=== PATIENT | male | born 2005 | race Two or more races ===

== ENCOUNTER 2025-05-22 13:19 | Outpatient (REF) | payer BC, SELFPAY ==
[2025-05-22 17:40] LABS: MANUAL DIFF FLAG NO
[2025-05-22 17:51] LABS: Hematocrit 42.5 % (42.0-52.0); Hemoglobin 14.0 g/dl (14.0-18.0); Imm Gran Abs Auto 0.02 X10*3/uL (0.00-0.03); Imm Gran Pct Auto 0.3 % (0.0-0.4); Lymphocytes Absolute Auto 1.8 X10*3/uL (1.2-4.9); Mean Corpuscular HGB Conc 32.9 g/dl (31.0-36.0); Mean Corpuscular Hemoglobin 26.6 pg (27.0-33.0); Mean Corpuscular Volume 80.8 fL (80.0-98.0); NRBC Abs Auto 0.000 X10*3/uL (0.0-0.012); NRBC Pct Auto 0.0 /100WBC (0.0-0.2); Platelet Count 186 X10*3/uL (160-400); Red Blood Count 5.26 X10*6/uL (4.60-5.80); White Blood Count 6.6 X10*3/uL (4.8-10.8)
[2025-05-22 17:52] LABS: Appearance Urine Cloudy; Glucose Urine UA Negative (Negative); PH 8.5 (5.0-9.0); Specific Gravity - Urine 1.020 (1.005-1.025)
[2025-05-22 18:25] LABS: Alanine Aminotransferase 130 U/L (0-40); Albumin Level 5.0 g/dL (3.5-5.0); Alkaline Phosphatase 78 U/L (39-117); Anion Gap 12 (12-20); Aspartate Amino Transferase 203 U/L (5-37); Blood Urea Nitrogen 10 mg/dL (9-16); Calcium 9.7 mg/dL (8.4-10.2); Carbon Dioxide 29 mmol/L (22-29); Chloride 105 mmol/L (96-108); Cholesterol 231 mg/dL (<200); Estimated Glomerular Filt Rate > 60; HDL Cholesterol 37 mg/dL (>40); Magnesium 1.8 mg/dL (1.6-2.6); Potassium 3.9 mmol/L (3.3-5.1); Sodium 142 mmol/L (135-145); Total Protein 7.8 g/dL (6.5-8.0); Triglycerides 237 mg/dL (<150)
[2025-05-23 08:44] LABS: HBS Num1 1.33 mIU/mL (0-7.99); HBsAGNum1 0.40 S/CO (0.00-0.99); HIV Num 1 0.06 S/CO (0.00-0.99); Hepatitis B Surface Antigen Negative (Negative); ~HepC Num1 0.08 S/CO (0.00-0.79); ~Hepatitis B Surface Antibody NONREACTIVE (Nonreactive); ~Hepatitis C Antibody Nonreactive (Nonreactive)
[2025-05-23 09:05] LABS: Syphilis Screen Nonreactive (Nonreactive)
[2025-05-23 10:48] LABS: CT PCR Urine NOT DETECTED (Not Detect.); NG PCR Urine NOT DETECTED (Not Detect.)
[2025-05-29 15:43] LABS: VITAMIN D (1,25 OH) D3 31 pg/mL; Vit D (1,25-Dihydroxy) Total 31 pg/mL (18-72); Vitamin D (1,25 OH) D2 <8 pg/mL
[2025-05-30 13:24] LABS: Chlamydia Pneumoniae Interp. Past Infection; Chlamydia Trachomatis IgA <1:16 titer (<1:16)
== END 2025-05-22 13:20 | disposition home or self-care (01) ==
LOC: HO.HKASLDS 13:19
PROVIDERS: PCP Student in an Organized Health Care Education/Training Program; Visit Provider Student in an Organized Health Care Education/Training Program
DX: Z76.89 Persons encountering health services in other specified circumstances (principal); Z01.89 Encounter for other specified special examinations; Z13.9 Encounter for screening, unspecified; Z71.9 Counseling, unspecified; R03.0 Elevated blood-pressure reading, without diagnosis of hypertension; E66.3 Overweight; F43.23 Adjustment disorder with mixed anxiety and depressed mood; K59.00 Constipation, unspecified; K64.9 Unspecified hemorrhoids; Z20.2 Contact with and (suspected) exposure to infections with a predominantly sexual mode of transmission
CPT/HCPCS: 80053; 80061; 81003; 82652; 83036; 83735; 84443; 85025; 86631; 86632; 86706; 86780; 86803; 87340; 87389; 87491; 87591; 96127

== ENCOUNTER 2025-05-22 13:19 | Outpatient (AMB) | payer BC, SELFPAY ==
--- NOTE | 2025-05-22 13:26 | MHC.PC.OV ---
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 Constipation: - The patient reports experiencing constipation for approximately four years, with bowel movements occurring every three days. - Previous interventions included the use of laxatives and stool softeners, which provided temporary relief. - The patient has attempted dietary changes, but reports insufficient intake of fiber and vegetables. - The patient engages in physical activity, attending the gym three times a week. Hemorrhoids: - The patient suspects the presence of hemorrhoids, noting occasional blood on toilet paper and a palpable bump. - The patient has been trying to avoid prolonged sitting on the toilet to alleviate symptoms. Health Maintenance - Dietary advice: Increase fiber intake and consume more vegetables. - Exercise: Patient is encouraged to continue regular physical activity. Review of Systems - Gastrointestinal: Reports constipation for four years, occasional blood on toilet paper, and a palpable bump suggestive of hemorrhoids. - General: Denies any other significant symptoms or concerns. 10-point ROS reviewed and negative except as noted in HPI Medication History - Laxatives and stool softeners: Previously used for constipation with temporary relief. Current Substance Use - Alcohol: Consumes occasionally. Substance Use History - Alcohol: Occasional use reported. Family History - Mother: Reports similar digestive issues, but no specific diagnosis known. Social History - Diet: Irregular eating habits with insufficient fiber and vegetable intake. - Exercise: Attends gym three times a week. Physical Exam General: No apparent distress. Alert and oriented x 3. Head: Normocephalic, atraumatic Eyes: Pupils equal, round, and reactive to light. Extraocular movements intact Throat: Oropharynx clear. No lesions or exudate.oropharynx clear. Mucus membranes moist Neck: Supple. No lymphadenopathy.left anterior descending artery distention. No jugular vein distention. No bruit. Cardiovascular: Regular rate and rhythm. Normal S1 and S2. No murmurs, gallops, or rubs. murmurs, rubs, or gallops Lungs: Clear to auscultation bilaterally. Breath sounds equal bilaterally. No rales, rhonchi, or wheezes. Abdomen: Non-tender. Non-distended. Bowel sounds auscultated. Reports constipation with bowel movements every three days. Last bowel movement was four days ago, with a small movement yesterday.hepatosplenomegaly. No mass/rebound/guarding Extremities: No cyanosis, clubbing, or edema.clubbing, cyanosis, and edema. 2+ pulses Neuro: Cranial nerves II-XII grossly intact. Motor/sensory intact. Reflexes 2+. Gait normal. Skin: Warm, dry, and intact. No rash. No dry skin or cold intolerance noted. Discussion Notes I discussed with the patient the importance of increasing dietary fiber and maintaining adequate hydration to manage constipation. We also talked about the use of Metamucil and Bisacodyl to aid bowel movements. I recommended a comprehensive blood workup to rule out underlying conditions such as thyroid dysfunction. Plan 1. Unspecified hemorrhoids K64.9 - Management includes avoiding prolonged sitting on the toilet and using stool softeners to prevent straining. 2. Constipation, unspecified K59.00 - Plan includes increasing dietary fiber intake, maintaining hydration, and using Metamucil and Bisacodyl as needed. - A comprehensive blood panel will be conducted to assess for any underlying metabolic or thyroid issues. Patient Instructions - Increase your intake of fiber-rich foods and vegetables. - Stay hydrated by drinking plenty of water daily. - Use Metamucil and Bisacodyl as directed to help with bowel movements. - Avoid sitting on the toilet for extended periods to reduce hemorrhoid symptoms. [facility] Family History (Updated 05/22/25 @ 13:28 by Gera Regan MA) Father No problems noted. Mother No problems noted. Social History (Updated 05/22/25 @ 13:34 by Gera Regan MA) Housing: House Alcohol intake: current Alcohol intake frequency: holidays/special occasions only Patient Tobacco Use Status: Never used Tobacco service: No Current occupational status: unemployed Cognitive needs: No Hearing needs: No Vision needs: No Questionnaire PHQ-9 Over the last 2 weeks, how often have you been bothered by any of the following problems? 1. Little interest or pleasure in doing things: several days 2. Feeling down, depressed, or hopeless: not at all 3. Trouble falling or staying asleep, or sleeping too much: several days 4. Feeling tired or having little energy: several days 5. Poor appetite or overeating: not at all 6. Feeling bad about yourself - or that you are a failure or have let yourself or your family down: not at all 7. Trouble concentrating on things, such as reading the newspaper or watching television: nearly every day 8. Moving or speaking so slowly that other people could have noticed. Or the opposite - being so fidgety or restless that you have been moving around a lot more than usual: several days 9. Thoughts that you would be better off or of hurting yourself in some way: not at all Total score: 7 Depression Screening Interpretation: Positive Depression Screening Done: Yes 55136 - PHQ-9 Billing: Yes Source: Developed by Drs. Jamel Kingsley, Adilene Ramachandran, Robles Watters and colleagues, with an educational rachid from [employer]. Thrive Questionnaire Date Thrive assessed: 05/22/25 I am a: Patient What is your living situation today?: I have a steady place to live Within the past 12 months, did the food you bought not last and you didn't have the money to get more?: Never true Within the past 12 months, did you worry whether your food would run out before you got money to buy more?: Sometimes True Do you have trouble paying for medicines?: No Do you have trouble getting transportation to medical appointments?: No Do you have trouble paying your heating and electricity bill?: I choose not to answer this question Do you have trouble taking care of your child, family member or friend?: No Are you currently unemployed and looking for a job?: Yes Are you interested in more education?: I choose not to answer this question Please select the resources that you would like help with: None Currently or been in a relationship where the following occur: No concerns reported THRIVE Score: 1 AUDIT C Alcohol Use Questionnaire (AUDIT-C) 1. How often do you have a drink containing alcohol?: Monthly or less 2. How many drinks containing alcohol do you have on a typical day when you are drinking?: 1 or 2 3. How often do you have six or more drinks on one occasion?: Less than monthly Total Score: 2 DELL-7 AMB Questionnaire DELL-7 Feeling nervous, anxious, or on edge: 2 = More than half the days Not being able to stop or control worryin = Several days Worrying too much about different things: 1 = Several days Trouble relaxin = Several days Being so restless that it is hard to sit still: 0 = Not at all Becoming easily annoyed or irritable: 1 = Several days Feeling afraid as if something awful might happen: 1 = Several days Total DELL-7 score (0-4 normal; 5-9 mild; 10-14 moderate; 15-21 severe): 7 Source: Developed by Drs. Jamel Kingsley, Adilene Ramachandran, Robles Watters and colleagues, with an educational rachid from [employer]. Physical exam (Primary Care) Vital Signs: Last Vital Signs Temp 98 F 05/22/25 13:35 Pulse 97 05/22/25 13:35 Resp 16 05/22/25 13:35 BP 130/82 05/22/25 13:35 Pulse Ox 98 05/22/25 13:35 Oxygen Delivery Method Room Air 05/22/25 13:35 BMI result Body Mass Index 27.2 Tobacco/Smoking Status: Tobacco use Status Tobacco use date assessed 05/22/25 05/22/25 13:28 Patient Tobacco Use Status Never used Tobacco 05/22/25 13:34 PHQ-9: PHQ-9 Score PHQ-9: Total score 7 05/22/25 13:38 Depression Screening Interpretation: Positive Thrive Assessment: Date of Thrive Assessment Date Thrive assessed 05/22/25 05/22/25 13:28 Currently or been in a relationship where the following occur: No concerns reported Coding Level of Care Code New Pt Level 3 (58556) Diagnoses Encounter to establish care Z76.89 Routine lab draw Z01.89 Encounter for screening, unspecified Z13.9 Counseling, unspecified Z71.9 Elevated blood pressure reading R03.0 Overweight (BMI 25.0-29.9) E66.3 Adjustment disorder with mixed anxiety and depressed mood F43.23 Constipation K59.00 Hemorrhoids K64.9 Routine screening for STI (sexually transmitted infection) Z11.3 Additional Codes PHQ-9 - 58498 - PHQ-9 Billing: Yes ([id number]) Assessment & Plan Assessment & Plan (1) Encounter to establish care: Code(s): Z76.89 - Persons encountering health services in other specified circumstances (2) Routine lab draw: Code(s): Z01.89 - Encounter for other specified special examinations (3) Encounter for screening, unspecified: Code(s): Z13.9 - Encounter for screening, unspecified (4) Counseling, unspecified: Code(s): Z71.9 - Counseling, unspecified (5) Elevated blood pressure reading: Code(s): R03.0 - Elevated blood-pressure reading, without diagnosis of hypertension (6) Overweight (BMI 25.0-29.9): Code(s): E66.3 - Overweight (7) Adjustment disorder with mixed anxiety and depressed mood: Code(s): F43.23 - Adjustment disorder with mixed anxiety and depressed mood (8) Constipation: Code(s): K59.00 - Constipation, unspecified (9) Hemorrhoids: Code(s): K64.9 - Unspecified hemorrhoids (10) Routine screening for STI (sexually transmitted infection): Code(s): Z11.3 - Encounter for screening for infections with a predominantly sexual mode of transmission Plan Orders: Orders Complete Blood Count Auto Diff Today Z13.9 - Encounter for screening, unspecified, Z76.89 - Persons encountering health services in other specified circumstances Comprehensive Met. Panel Today Z13.9 - Encounter for screening, unspecified, Z76.89 - Persons encountering health services in other specified circumstances Hepatitis C Antibody Today Z13.9 - Encounter for screening, unspecified, Z76.89 - Persons encountering health services in other specified circumstances HIV Ab/Ag Today Z13.9 - Encounter for screening, unspecified, Z76.89 - Persons encountering health services in other specified circumstances Lipid Panel Today Z13.9 - Encounter for screening, unspecified, Z76.89 - Persons encountering health services in other specified circumstances CT NG by PCR Urine Today Z13.9 - Encounter for screening, unspecified, Z76.89 - Persons encountering health services in other specified circumstances Hemoglobin A1c Today Z13.9 - Encounter for screening, unspecified, Z76.89 - Persons encountering health services in other specified circumstances Hepatitis B Surface Antibody Today Z13.9 - Encounter for screening, unspecified, Z76.89 - Persons encountering health services in other specified circumstances Hepatitis B Surface Antigen Today Z13.9 - Encounter for screening, unspecified, Z76.89 - Persons encountering health services in other specified circumstances Magnesium Today Z13.9 - Encounter for screening, unspecified, Z76.89 - Persons encountering health services in other specified circumstances Syphilis Screen Today Z13.9 - Encounter for screening, unspecified, Z76.89 - Persons encountering health services in other specified circumstances Chlamydia Species Ab Panel Today Z13.9 - Encounter for screening, unspecified, Z76.89 - Persons encountering health services in other specified circumstances TSH reflex Free T4 Today Z13.9 - Encounter for screening, unspecified, Z76.89 - Persons encountering health services in other specified circumstances UA CC w/rflx Micro + Cult Today Z13.9 - Encounter for screening, unspecified, Z76.89 - Persons encountering health services in other specified circumstances Vitamin D 1,25 dihydroxy Today Z13.9 - Encounter for screening, unspecified, Z76.89 - Persons encountering health services in other specified circumstances
[2025-05-22 13:35] VITALS: BP 130/82; PULSE 97; RESP 16; TEMP 36.6; O2SAT 98; BMI 27.2
--- OUTSIDE RECORDS SUMMARY | 2025-05-22 18:28 | XMS_ITS ---
Author Name [facility] Organization Unknown Care Team Organization Name Specialty Phone Email Start Date End [facility] 07/22/2024 05/07/2025
== END 2025-05-22 14:30 | disposition home or self-care (01) ==
LOC: HO.HMCFMS 13:19
PROVIDERS: PCP Student in an Organized Health Care Education/Training Program; Visit Provider Student in an Organized Health Care Education/Training Program
DX: R03.0 Elevated blood-pressure reading, without diagnosis of hypertension (principal); E66.3 Overweight; F43.23 Adjustment disorder with mixed anxiety and depressed mood; K59.00 Constipation, unspecified; K64.9 Unspecified hemorrhoids; Z71.9 Counseling, unspecified

== ENCOUNTER 2025-06-13 13:18 | Outpatient (AMB) | payer BC, SELFPAY ==
[2025-06-13 13:19] VITALS: BP 129/81; PULSE 69; RESP 20; TEMP 36.9; O2SAT 98; BMI 26.9
--- NOTE | 2025-06-13 13:19 | A.OFFPC_ITS ---
Vital Signs 06/13/25 13:19 Height 5 ft 7.72 in Weight 175 lb 6 oz BMI 26.9 BP 129/81 Position Sitting Respiration 20 Pulse 69 Pulse Source Pulse Oximeter Temp 98.5 F Temp Source Oral Pulse Oximetry (%) 98 Oxygen Delivery Method Room Air Intake Visit Reasons: 3 week follow up Intake Note: stomach trouble, constipation and digestion. 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 Accompanied by: Self / Same As Patient Allergies No Known Allergies Allergy (Verified 06/13/25 13:20) Tobacco use date assessed: 06/13/25 Dental Screening Dental Screen Date: 06/13/25 Did you have a dental visit in the last 12 months?: Yes Did you have a dental problem in the last 6 months where you did not have access to dental care?: No Was dental information given to patient?: Patient has dentist HPI HPI Comments History of Present Illness Details History of Present Illness The patient is a 20-year-old male presenting with abnormal laboratory results related to cholesterol and liver enzymes. Hyperlipidemia: - Total cholesterol is elevated at 231 m g/dL, LDL cholesterol at 147 mg/dL, HDL cholesterol is low at 37 mg/dL, and triglycerides are elevated at 237 mg/dL. - The patient has started exercising mor e frequently, moving to five days a week, which is expected to help manage lipid levels. Elevated liver enzymes: - AST level is significantly elevated at 203 U/L, and ALT is elevated at 130 U/L, indicating increased liver activity possibly due to fat accumulation. - A liver ultrasound has been ordered to assess structural integrity, and lifestyle modifications are recommended to address the issue. Review of Systems 10-point ROS reviewed and negative excep t as noted in HPI Past Medical History Health Maintenance - Referral to a burring wheel operator for dietary modifications to manage cholesterol and liver health. - Liver ultrasound to evaluate structura l integrity of the liver. - Recommendation for moderate intensity exercise, 150 minutes per week, to improve lipid profile and liver function. Physical Exam General: Well-appearing, in no acute distress. Vital signs: Within normal limits. HEENT: Normocephalic, atraumatic. PERRLA, EOMI. Conjunctiva clear, sclera anicteric. Oropharynx clear, mucous membranes moist. TMs intact bilaterally. Neck: Supple, no lymphadenopathy, no thyromegaly, no JVD or carotid bruits. Cardiovascular: RRR, normal S1/S2, no murmurs, rubs, or gallops. Peripheral pulses 2+ and symmetric. No edema. Respiratory: Lungs clear to auscultation bilaterally, no wheezes, rales, or rhonchi. Normal effort. Abdomen: Soft, non-tender, non-distended. Normoactive bowel sounds. No hepatosplenomegaly, no masses. MSK: Full range of motion, no joint swelling or deformity. Normal gait. Skin: Warm, dry, intact. No rashes, lesions, or pallor. Neuro: Alert and oriented x3. Cranial nerves II-XII intact. Strength 5/5 throughout. Sensation intact. Reflexes 2+ symmetric. Normal coordination and gait. Psych: Appropriate mood and affect. Normal judgment and insight. Plan 1. Hyperlipidemia - Plan includes referral to a nutritioni st for dietary counseling and lifestyle modifications. - Encouragement of moderate intensity ex ercise, aiming for 150 minutes per week, to help reduce lipid levels. 2. Elevated Liver Enzymes - Liver ultrasound ordered to assess str uctural integrity and rule out significant liver pathology. - Lifestyle changes including diet and e xercise are recommended to reduce liver fat and enzyme levels. Discussion Notes I discussed with the patient the significance of the elevated cholesterol and l iver enzyme levels. We talked about the importance of lifestyle modifications, including dietary changes and increased physical activity, to manage these conditions. I explained the referral to a burring wheel operator and the need for a liver ultrasound to ensure there are no structural issues with the liver. We also discussed the plan to repeat the laboratory tests in six months to monitor progress. Patient was informed and verbally consented to the use of an ambient scribe for clinic note documentation during this visit. Patient Instructions - Follow up with the burring wheel operator for di etary guidance. - Undergo a liver ultrasound as schedule d. - Engage in moderate intensity exercise for at least 150 minutes per week. - Return for follow-up lab tests in six months. Total time spent caring for the patient today was 30 minutes. This includes time spent before the visit reviewing the chart, time spent documenting, and time spent reviewing laboratory results, performing a medically necessary tarun luation, counseling on diagnoses, care coordination, ordering appropriate tests. [facility] Medical History (Updated 06/13/25 @ 13:38 by Dante Ybarra MD) Hyperlipidemia Family History Father No problems noted. Mother No problems noted. Social History Housing: House Alcohol intake: current Alcohol intake frequency: holidays/special occasions only Patient Tobacco Use Status: Never used Tobacco service: No Current occupational status: unemployed Cognitive needs: No Hearing needs: No Vision needs: No Questionnaire PHQ-9 Over the last 2 weeks, how often have you been bothered by any of the following problems? 1. Little interest or pleasure in doing things: several days 2. Feeling down, depressed, or hopeless: not at all 3. Trouble falling or staying asleep, or sleeping too much: several days 4. Feeling tired or having little energy: several days 5. Poor appetite or overeating: not at all 6. Feeling bad about yourself - or that you are a failure or have let yourself o r your family down: not at all 7. Trouble concentrating on things, such as reading the newspaper or watching television: nearly every day 8. Moving or speaking so slowly that other people could have noticed. Or the opposite - being so fidgety or restless that you have been moving around a lot more than usual: several days 9. Thoughts that you would be better off or of hurting yourself in some way: not at all Total score: 7 Depression Screening Interpretation: Positive Depression Screening Done: Yes 05516 - PHQ-9 Billing: Yes Source: Developed by Drs. Jamel Kingsley, Adilene Ramachandran, Robles Watters and colleagues, with an educational rachid from [employer]. Thrive Questionnaire Date Thrive assessed: 06/13/25 I am a: Patient What is your living situation today?: I have a steady place to live Within the past 12 months, did the food you bought not last and you didn't have the money to get more?: Never true Within the past 12 months, did you worry whether your food would run out before you got money to buy more?: Sometimes True Do you have trouble paying for medicines?: No Do you have trouble getting transportation to medical appointments?: No Do you have trouble paying your heating and electricity bill?: I choose not to answer this question Do you have trouble taking care of your child, family member or friend?: No Do you have trouble with day-to-day activities such as bathing, preparing meals, shopping, managing finances, etc.?: No Are you currently unemployed and looking for a job?: Yes Are you interested in more education?: I choose not to answer this question Please select the resources that you would like help with: None Currently or been in a relationship where the following occur: No concerns reported THRIVE Score: 1 AUDIT C Alcohol Use Questionnaire (AUDIT-C) 1. How often do you have a drink containing alcohol?: Monthly or less 2. How many drinks containing alcohol do you have on a typical day when you are drinking?: 1 or 2 3. How often do you have six or more drinks on one occasion?: Less than monthly Total Score: 2 DELL-7 AMB Questionnaire DELL-7 Date DELL - 7 assessed: 06/13/25 Feeling nervous, anxious, or on edge: 2 = More than half the days Not being able to stop or control worryin = Several days Worrying too much about different things: 1 = Several days Trouble relaxin = Several days Being so restless that it is hard to sit still: 0 = Not at all Becoming easily annoyed or irritable: 1 = Several days Feeling afraid as if something awful might happen: 1 = Several days Total DELL-7 score (0-4 normal; 5-9 mild; 10-14 moderate; 15-21 severe): 7 Source: Developed by Drs. Jamel Kingsley, Adilene Ramachandran, Robles Watters and colleagues, with an educational rachid from [employer]. Physical exam (Primary Care) Vital Signs: Last Vital Signs Temp 98.5 F 06/13/25 13:19 Pulse 69 06/13/25 13:19 Resp 20 06/13/25 13:19 BP 129/81 06/13/25 13:19 Pulse Ox 98 06/13/25 13:19 Oxygen Delivery Method Room Air 06/13/25 13:19 BMI result Body Mass Index 26.9 Tobacco/Smoking Status: Tobacco use Status Tobacco use date assessed 06/13/25 06/13/25 13:28 Patient Tobacco Use Status Never used Tobacco 06/13/25 13:28 PHQ-9: PHQ-9 Score PHQ-9: Total score 7 06/13/25 13:28 Depression Screening Interpretation: Positive Thrive Assessment: Date of Thrive Assessment Date Thrive assessed 06/13/25 06/13/25 13:28 Currently or been in a relationship where the following occur: No concerns reported Coding Level of Care Code Est Pt Level 4 (83322) Diagnoses Elevated liver enzymes R74.8 Hyperlipidemia E78.5 Overweight with body mass index (BMI) 25.0-29.9 E66.3 Additional Codes PHQ-9 - 80931 - PHQ-9 Billing: Yes ([id number]) Assessment & Plan Assessment & Plan (1) Elevated liver enzymes: Code(s): R74.8 - Abnormal levels of other serum enzymes (2) Hyperlipidemia: Code(s): E78.5 - Hyperlipidemia, unspecified Category: Medical (3) Overweight with body mass index (BMI) 25.0-29.9: Code(s): E66.3 - Overweight Plan Orders: Orders US abdomen limited Today R74.8 - Abnormal levels of other serum enzymes Referrals Nurse Navigator Referral E78.5 - Hyperlipidemia, unspecified
== END 2025-06-13 13:39 | disposition home or self-care (01) ==
LOC: HO.HMCFMS 13:19
PROVIDERS: PCP Student in an Organized Health Care Education/Training Program; Visit Provider Student in an Organized Health Care Education/Training Program
DX: R74.8 Abnormal levels of other serum enzymes (principal); E78.5 Hyperlipidemia, unspecified; E66.3 Overweight

== ENCOUNTER → 2025-06-13 13:18 | Outpatient (BNVA) | payer BC, SELFPAY | PROVIDERS: PCP Student in an Organized Health Care Education/Training Program; Visit Provider Student in an Organized Health Care Education/Training Program | DX: R74.8 Abnormal levels of other serum enzymes (principal); E78.5 Hyperlipidemia, unspecified; E66.3 Overweight; Z68.26 Body mass index [BMI] 26.0-26.9, adult; Z13.31 Encounter for screening for depression; Z13.39 Encounter for screening examination for other mental health and behavioral disorders | CPT/HCPCS: 96127 ==

== ENCOUNTER 2025-06-15 09:57 | Outpatient (REF) | payer BC, SELFPAY ==
--- NOTE | ~2025-06-15 | US_ITS ---
CLINICAL HISTORY: R74.8 - Abnormal levels of other serum enzymes US abdomen limited Comparison: None provided Findings: The visualized pancreas is normal. The aorta and inferior vena cava are normal caliber. The appearance of the liver suggests fatty infiltration. There is no intrahepatic bile duct dilatation. The common duct is 1.8 mm in diameter. The gallbladder is normal. There is no sonographic Ruelas sign. The main portal vein is antegrade. The right kidney is 9.3 cm in length. No ascites. IMPRESSION: 1. Hepatic steatosis. This document has been electronically signed by: Adriel Wellington MD on 06/16/2025 08:49:51
== END 2025-06-15 09:58 | disposition home or self-care (01) ==
LOC: HO.HMGCX 09:57
PROVIDERS: PCP Student in an Organized Health Care Education/Training Program; Visit Provider Student in an Organized Health Care Education/Training Program
DX: R74.8 Abnormal levels of other serum enzymes (principal)
CPT/HCPCS: 76705

== ENCOUNTER → 2025-06-15 10:00 | Outpatient (BNV) | payer BC, SELFPAY | PROVIDERS: PCP Student in an Organized Health Care Education/Training Program; Visit Provider Specialist | DX: K76.0 Fatty (change of) liver, not elsewhere classified (principal) | CPT/HCPCS: 76705 ==

== ENCOUNTER 2025-07-25 13:10 | Outpatient (AMB) | payer BC, SELFPAY ==
--- NOTE | 2025-07-25 13:17 | A.OFFPC_ITS ---
Vital Signs 07/25/25 13:22 Height 5 ft 7.72 in Weight 174 lb 4 oz BMI 26.7 BP 134/63 Blood Pressure Location Rt brachial Position Sitting Respiration 18 Pulse 69 Pulse Source Monitor Temp 98.1 F Temp Source Oral Pulse Oximetry (%) 98 Oxygen Delivery Method Room Air Intake Visit Reasons: 6 week follow up Intake Note: follow up Technical Support Technician Required: No Accompanied by: Self / Same As Patient Allergies No Known Allergies Allergy (Verified 07/25/25 13:20) Tobacco use date assessed: 06/13/25 Dental Screening Dental Screen Date: 06/13/25 HPI HPI Comments History of Present Illness Details History of Present Illness The patient is a 20-year-old male presenting for a follow-up visit to review his ultrasound results. Hepatic Steatosis: An ultrasound has confirmed the presence of hepatic steatosis, also known as fatty liver. Previous lab results showed elevated liver enzymes, with AST being four to five times the upper limit of normal and ALT being two to three times the upper limit of normal. Hyperlipidemia: The patient has a history of dyslipidemia, with a total cholesterol of 231 mg/dL, triglycerides of 237 mg/dL, and LDL cholesterol of 147 mg/dL. He has been working on improving his diet by incorporating more vegetables. Social History: - Nutrition: The patient reports he has been trying to eat more vegetables and is receptive to receiving advice on healthy eating habits. Diagnostic Results: - Imaging: Ultrasound showed hepatic lonny atosis. - Labs: Total cholesterol was 231 mg/dL (normal <200), triglycerides were 237 mg/dL (normal <150), and LDL was 147 mg/dL (normal <100). - Previous labs showed AST was four to f chery times high and ALT was two to three times high. Past Medical History - Hepatic steatosis - Hyperlipidemia - Elevated liver enzymes Health Maintenance - Discussed lifestyle changes, including dietary modifications, to address fatty liver and high cholesterol. - Arranged for a nurse navigator to prov pham education on healthy eating habits. - Patient has already begun to incorpora te more vegetables into his diet. [facility] Medical History (Updated 07/25/25 @ 13:31 by Dante Ybarra MD) Fatty liver Hyperlipidemia Family History Father No problems noted. Mother No problems noted. Social History (Updated 07/25/25 @ 13:22 by IVEHT Fatima Housing: House Alcohol intake: current Alcohol intake frequency: holidays/special occasions only Patient Tobacco Use Status: Never used Tobacco Use of substances other than those prescribed or required for medical reasons: No service: No Current occupational status: unemployed Cognitive needs: No Hearing needs: No Vision needs: No Questionnaire Thrive Questionnaire Date Thrive assessed: 05/22/25 I am a: Patient What is your living situation today?: I have a steady place to live Within the past 12 months, did the food you bought not last and you didn't have the money to get more?: Never true Within the past 12 months, did you worry whether your food would run out before you got money to buy more?: Sometimes True Do you have trouble paying for medicines?: No Do you have trouble getting transportation to medical appointments?: No Do you have trouble paying your heating and electricity bill?: I choose not to answer this question Do you have trouble taking care of your child, family member or friend?: No Do you have trouble with day-to-day activities such as bathing, preparing meals, shopping, managing finances, etc.?: No Are you currently unemployed and looking for a job?: Yes Are you interested in more education?: I choose not to answer this question Please select the resources that you would like help with: None Currently or been in a relationship where the following occur: No concerns reported THRIVE Score: 1 DELL-7 AMB Questionnaire DELL-7 Date DELL - 7 assessed: 06/13/25 Source: Developed by Drs. Jamel Kingsley, Adilene Ramachandran, Robles Watters and colleagues, with an educational rachid from [employer]. Review of Systems Narrative Review of Systems 10-point ROS reviewed and negative except as noted in HPI Physical exam (Primary Care) Vital Signs: Last Vital Signs Temp 98.1 F 07/25/25 13:22 Pulse 69 07/25/25 13:22 Resp 18 07/25/25 13:22 BP 134/63 07/25/25 13:22 Pulse Ox 98 07/25/25 13:22 Oxygen Delivery Method Room Air 07/25/25 13:22 BMI result Body Mass Index 26.7 Tobacco/Smoking Status: Tobacco use Status Tobacco use date assessed 06/13/25 07/25/25 13:18 Patient Tobacco Use Status Never used Tobacco 07/25/25 13:22 Thrive Assessment: Date of Thrive Assessment Date Thrive assessed 05/22/25 07/25/25 13:18 Currently or been in a relationship where the following occur: No concerns reported Narrative Physical Exam General: Well-appearing, in no acute distress. Vital signs: Within normal limits. HEENT: Normocephalic, atraumatic. PERRLA, EOMI. Conjunctiva clear, sclera anicteric. Oropharynx clear, mucous membranes moist. TMs intact bilaterally. Neck: Supple, no lymphadenopathy, no thyromegaly, no JVD or carotid bruits. Cardiovascular: RRR, normal S1/S2, no murmurs, rubs, or gallops. Peripheral pulses 2+ and symmetric. No edema. Respiratory: Lungs clear to auscultation bilaterally, no wheezes, rales, or rhonchi. Normal effort. Abdomen: Soft, non-tender, non-distended. Normoactive bowel sounds. No hepatosplenomegaly, no masses. MSK: Full range of motion, no joint swelling or deformity. Normal gait. Skin: Warm, dry, intact. No rashes, lesions, or pallor. Neuro: Alert and oriented x3. Cranial nerves II-XII intact. Strength 5/5 throughout. Sensation intact. Reflexes 2+ symmetric. Normal coordination and g ait. Psych: Appropriate mood and affect. Normal judgment and insight. Coding Level of Care Code Est Pt Level 3 (42272) Diagnoses Fatty liver K76.0 Hyperlipidemia E78.5 Assessment & Plan Assessment & Plan (1) Fatty liver: Code(s): K76.0 - Fatty (change of) liver, not elsewhere classified Category: Medical (2) Hyperlipidemia: Code(s): E78.5 - Hyperlipidemia, unspecified Category: Medical Plan Consent Patient was informed and verbally consented to the use of an ambient scribe for clinic note documentation during this visit. Plan 1. Hepatic Steatosis - The presence of fatty liver disease is confirmed by ultrasound. - The plan is to repeat liver function tests in three months to monitor elevated AST and ALT levels. - Lifestyle modifications, specifically dietary changes, are recommended as the primary intervention. - A nurse navigator will consult with the patient to provide education on eating habits. 2. Hyperlipidemia - The patient's lab results show elevated total cholesterol, triglycerides, and LDL cholesterol. - The management plan focuses on lifestyle changes to lower lipid levels. - Follow-up labs, including a lipid panel, will be repeated in three months. Discussion Notes I reviewed the patient's ultrasound results with him, which confirmed a diagnosis of hepatic steatosis. We discussed his recent lab work, which showed hyperlipidemia with a total cholesterol of 231 mg/dL, triglycerides of 237 mg/dL, and LDL of 147 mg/dL. I explained that the cause of his condition is related to lifestyle and that we will focus on dietary changes. I have arranged for a nurse navigator to provide him with education on healthy eating, and we will repeat his labs in three months to monitor his progress. A follow-up appointment is scheduled in three months. Patient Instructions - Your ultrasound results show that you have a condition called fatty liver, which is related to high cholesterol levels. - It is important to make lifestyle changes, especially improving your diet, to help manage this condition. - A nurse navigator will speak with you to provide specific advice on healthy eating habits. - Please return to the clinic in three months for a follow-up visit and to have your blood work repeated. - Ask the front office coordinator staff to help you sign up for the patient portal. Medical Decision Making The patient is a 20-year-old male who presented to review diagnostic results. His ultrasound confirmed hepatic steatosis, which is consistent with his recent lab findings of hyperlipidemia (total cholesterol 231, triglycerides 237, LDL 147) and historically elevated transaminases. The primary etiology is related to lifestyle. The initial management plan focuses on non-pharmacological intervention through lifestyle and dietary modification. I have referred the patient to our nurse navigator for dietary counseling to support these changes. I will re-evaluate with repeat labs, including a lipid panel and LFTs, in three months to assess the impact of these changes and determine if further medical intervention is warranted. Total Time Statement 20 min Total time spent caring for the patient today includes pre-visit chart review, documentation, review of laboratory and diagnostic imaging results, medication reconciliation, medically necessary evaluation, counseling on diagnoses, care coordination, ordering appropriate tests and medications, review of tests performed by other providers, reporting test results to the patient, and communication with other healthcare providers.
[2025-07-25 13:22] VITALS: BP 134/63; PULSE 69; RESP 18; TEMP 36.7; O2SAT 98; BMI 26.7
== END 2025-07-25 13:45 | disposition home or self-care (01) ==
LOC: HO.HMCFMS 13:11
PROVIDERS: PCP Student in an Organized Health Care Education/Training Program; Visit Provider Student in an Organized Health Care Education/Training Program
DX: K76.0 Fatty (change of) liver, not elsewhere classified (principal); E78.5 Hyperlipidemia, unspecified